=== PATIENT | female | born 1990 ===

== ENCOUNTER 2016-05-18 20:49 | Emergency (ER) | payer OTHER ==
[2016-05-18 20:49] VITALS: BMI 21.9
[2016-05-18] MEDS ORDERED: Sodium Chloride 0.9% 1,000 ML IV ONE ×2 (21:37→22:03)
[2016-05-18 21:48] LABS: BASO % 0.2 % (0.0-2.0); EOS # 0.1 K/uL (0.0-0.7); EOS % 0.6 % (0.0-4.0); HEMATOCRIT 38.6 % (34.0-47.0); LYMPH # 1.3 K/uL (1.0-4.3); LYMPH % 11.7 % (20.0-40.0); MEAN CELL VOLUME 82.6 fL (81.0-99.0); MEAN CORPUSCULAR HEMOGLOBIN 27.5 pg (27.0-31.0); MEAN CORPUSCULAR HGB CONC 33.3 g/dL (33.0-37.0); MEAN PLATELET VOLUME 7.7 fL (7.2-11.7); MONO # 0.9 K/uL (0.0-0.8); RED CELL DISTRIBUTION WIDTH 12.5 % (11.5-14.5); WHITE BLOOD COUNT 11.2 K/uL (4.8-10.8)
[2016-05-18] MEDS ORDERED: Sodium Chloride 0.9% 1,000 ML ONE (21:48)
[2016-05-18 21:50] LABS: RBC URINE 34 /hpf (0-3); URINE BACTERIA MANY (<OCC); URINE BILIRUBIN NEGATIVE (NEGATIVE); URINE BLOOD NEGATIVE (NEGATIVE); URINE COLOR Yellow (YELLOW); URINE GLUCOSE (UA) NORMAL (Normal); URINE KETONE 1+ mg/dL (NEGATIVE); URINE LEUKOCYTE ESTERASE 3+ Leu/uL (Negative); URINE PROTEIN NEGATIVE (NEGATIVE); WBC URINE 200 /hpf (0-5)
[2016-05-18 21:57] LABS: CHLORIDE 99 mmol/L (98-107); POTASSIUM 3.4 mmol/L (3.6-5.2); SODIUM 136 mmol/L (132-148)
[2016-05-18 21:59] LABS: BILIRUBIN,TOTAL 0.7 mg/dL (0.2-1.3); CARBON DIOXIDE 24 mmol/L (22-30); GFR AFRICAN-AMERICAN > 60
[2016-05-18 22:00] LABS: ALB/GLOB RATIO 1.3 (1.0-2.1); ALKALINE PHOSPHATASE 63 U/L (38-126); ALT/SGPT 44 U/L (9-52); AST/SGOT 23 U/L (14-36); BLOOD UREA NITROGEN 6 mg/dL (7-17); CALCIUM 8.4 mg/dl (8.6-10.4); GLUCOSE,RANDOM 89 mg/dL (65-105); TOTAL PROTEIN 7.4 g/dL (6.3-8.3)
--- NOTE | 2016-05-18 23:00 | C.PDOC ---
History Of Present Illness 25 year old female presents to the ED with complaints of diffuse bodyache and dry cough for four days. Patient describes a "few" episodes of bilious non- bloody vomiting, nausea, and fever. She denies any sick contacts, dysuria, hematuria, vaginal bleeding or discharge. Chief Complaint (Nursing): Abdominal Pain History Per: Patient History/Exam Limitations: no limitations Onset/Duration Of Symptoms: Days Current Symptoms Are (Timing): Still Present Associated Symptoms: Cough (dry cough ) Past Medical History Reviewed: Historical Data, Nursing Documentation, Vital Signs Vital Signs: Last Vital Signs Temp 98.9 F 05/18/16 23:40 Pulse 64 05/18/16 23:40 Resp 18 05/18/16 23:40 BP 102/65 05/18/16 23:40 Pulse Ox 98 05/18/16 23:40 - Medical History PMH: Anxiety Family History: States: Unknown Family Hx - Social History Hx Tobacco Use: No Hx Alcohol Use: No Hx Substance Use: No - Immunization History Hx Tetanus Toxoid Vaccination: Yes Hx Influenza Vaccination: No Hx Pneumococcal Vaccination: No Review Of Systems Constitutional: Positive for: Fever (subjective). Negative for: Chills Respiratory: Positive for: Cough (dry cough ) Gastrointestinal: Positive for: Nausea, Vomiting (bilious, non-bloody vomiting ) Genitourinary: Negative for: Dysuria, Hematuria, Vaginal Discharge, Vaginal Bleeding Physical Exam - Physical Exam Appears: Non-toxic, No Acute Distress Skin: Warm, Dry Neck: Normal ROM, Supple Respiratory: No Accessory Muscle Use, No Rales, No Rhonchi, No Stridor, No Wheezing Gastrointestinal/Abdominal: Soft, Tenderness (mild diffuse tenderness throughout ), No Distention, No Guarding, No Rebound Back: No CVA Tenderness Pelvic: No Vaginal Bleeding, No Vaginal Discharge Extremity: Normal ROM, No Tenderness Neurological/Psych: Oriented x3 ED Course And Treatment - Laboratory Results Result Diagrams: 05/18/16 21:46 05/18/16 21:46 O2 Sat by Pulse Oximetry: 94 Medical Decision Making Medical Decision Making: After hydration patient is feeling better. Patient discharged after positive test and given pre-susannah vitamins. Suggested to follow-up in OB clinic. Disposition - Disposition Referrals: [facility] [Outside] [facility] at [facility] [Outside] Disposition: HOME/ ROUTINE Disposition Time: 23:00 Condition: GOOD Additional Instructions: Thank you for letting us take care of you today. Your provider was Dr. Tello. You were treated for vomiting in . The emergency medical care you received today was directed at your acute symptoms. If you were prescribed any medication, please fill it and take as directed. It may take several days for your symptoms to resolve. Return to the Emergency Department if your symptoms worsen, do not improve, or if you have any other problems. Please contact your doctor or call one of the physicians/clinics you have been referred to that are listed on the Patient Visit Information form that is included in your discharge packet. Bring any paperwork you were given at discharge with you along with any medications you are taking to your follow up visit. Our treatment cannot replace ongoing medical care by a primary care provider (PCP) outside of the emergency department. [facility] you [facility] team to [facility] part of your care today. You had a urine culture: It will take several days for the results, if any change in treatment is needed we will contact you. Follow up in the clinic this week for OB follow up. Prescriptions: Vit No.126/Iron/FA [Classic Tablet] 1 each PO DAILY #30 tablet Instructions: Morning Sickness (ED), Acute Nausea and Vomiting (ED) - Clinical Impression Clinical Impression: Vomiting, - Scribe Statement The provider has reviewed the documentation as recorded by the Scribe Lynn Robbins All medical record entries made by the Arleneibe were at my direction and personally dictated by me. I have reviewed the chart and agree that the record accurately reflects my personal performance of the history, physical exam, medical decision making, and the department course for this patient. I have also personally directed, reviewed, and agree with the discharge instructions and disposition.
[2016-05-18 23:41] VITALS: BP 102/65; PULSE 64; RESP 18; TEMP 98.9
[2016-05-19 02:39] VITALS: O2SAT 94
== END 2016-05-18 23:41 | disposition home or self-care (01) ==
LOC: C.ER 20:49
DX: O21.0 Mild hyperemesis gravidarum (principal); Z3A.00 Weeks of gestation of pregnancy not specified
CPT/HCPCS: 80053; 81001; 83690; 84703; 85025; 87086; 87804; 96361; 96374; 96375; 99284; J2405; J7040

== ENCOUNTER 2016-06-03 09:46 | Emergency (ER) | payer OTHER ==
[2016-06-03 09:47] VITALS: BMI 21.9
[2016-06-03] MEDS ORDERED: Sodium Chloride 0.9% 1,000 ML IV ONE ×2 (10:37)
[2016-06-03] MEDS ORDERED: Sodium Chloride 0.9% 1,000 ML ONE ×2 (10:54→11:53)
[2016-06-03 11:14] LABS: BASO % 0.4 % (0.0-2.0); EOS % 0.5 % (0.0-4.0); LYMPH % 14.1 % (20.0-40.0); MEAN CELL VOLUME 82.9 fL (81.0-99.0); MEAN CORPUSCULAR HEMOGLOBIN 27.8 pg (27.0-31.0); MEAN CORPUSCULAR HGB CONC 33.6 g/dL (33.0-37.0); MEAN PLATELET VOLUME 8.2 fL (7.2-11.7); MONO # 0.5 K/uL (0.0-0.8); MONO % 7.7 % (0.0-10.0); RED CELL DISTRIBUTION WIDTH 12.6 % (11.5-14.5); WHITE BLOOD COUNT 6.9 K/uL (4.8-10.8)
[2016-06-03 11:24] LABS: RBC URINE 7 /hpf (0-3); URINE BACTERIA RARE (<OCC); URINE BILIRUBIN NEGATIVE (NEGATIVE); URINE BLOOD NEGATIVE (NEGATIVE); URINE COLOR Amber (YELLOW); URINE GLUCOSE (UA) NORMAL (Normal); URINE KETONE 1+ mg/dL (NEGATIVE); URINE LEUKOCYTE ESTERASE 2+ Leu/uL (Negative); URINE PROTEIN 1+ mg/dL (NEGATIVE); URINE UROBILINOGEN NORMAL mg/dL (0.2-1.0); WBC URINE 55 /hpf (0-5)
[2016-06-03 11:27] LABS: CHLORIDE 100 mmol/L (98-107)
[2016-06-03 11:28] LABS: POTASSIUM 3.2 mmol/L (3.6-5.2); SODIUM 135 mmol/L (132-148)
[2016-06-03 11:30] LABS: ALB/GLOB RATIO 1.2 (1.0-2.1); ALKALINE PHOSPHATASE 55 U/L (38-126); ALT/SGPT 19 U/L (9-52); AST/SGOT 17 U/L (14-36); BILIRUBIN,TOTAL 0.5 mg/dL (0.2-1.3); BLOOD UREA NITROGEN 6 mg/dL (7-17); CARBON DIOXIDE 26 mmol/L (22-30); GFR AFRICAN-AMERICAN > 60; GLUCOSE,RANDOM 88 mg/dL (65-105)
[2016-06-03 11:31] LABS: CALCIUM 8.4 mg/dl (8.6-10.4)
[2016-06-03 12:41] VITALS: BP 109/66; PULSE 61; RESP 20; TEMP 98.3; O2SAT 100
--- NOTE | 2016-06-03 13:47 | C.PDOC ---
History Of Present Illness 25 year old female with , presents to the ED with increased vomiting for 2 days. Patient also reports mild nausea, decreased PO intake but tolerate liquids. Patient denies fever, chills, cough, vaginal bleeding or discharge, hematuria, dysuria, blood in stool, or any other complaints. Chief Complaint (Nursing): GI Problem History Per: Patient History/Exam Limitations: no limitations Past Medical History Reviewed: Historical Data, Nursing Documentation, Vital Signs Vital Signs: Last Vital Signs Temp 98.3 F 06/03/16 12:40 Pulse 61 06/03/16 12:40 Resp 20 06/03/16 12:40 BP 109/66 06/03/16 12:40 Pulse Ox 100 06/03/16 13:51 - Medical History PMH: Anxiety Family History: States: Unknown Family Hx - Social History Hx Tobacco Use: No Hx Alcohol Use: No Hx Substance Use: No - Immunization History Hx Tetanus Toxoid Vaccination: Yes Hx Influenza Vaccination: No Hx Pneumococcal Vaccination: No Review Of Systems Except As Marked, All Systems Reviewed And Found Negative. Constitutional: Negative for: Fever Gastrointestinal: Positive for: Nausea, Vomiting Genitourinary: Negative for: Dysuria, Hematuria, Vaginal Discharge, Vaginal Bleeding Physical Exam - Physical Exam Appears: Non-toxic, No Acute Distress Skin: Warm, Dry Head: Atraumatic, Normacephalic Eye(s): bilateral: Normal Inspection Oral Mucosa: Moist Cardiovascular: Rhythm Regular, No Murmur Respiratory: Normal Breath Sounds, No Rales, No Rhonchi, No Wheezing Gastrointestinal/Abdominal: Soft, Tenderness (minimal difuse abdominal tenderness) Neurological/Psych: Oriented x3, Normal Speech, Normal Cognition ED Course And Treatment - Laboratory Results Result Diagrams: 06/03/16 11:11 06/03/16 11:11 O2 Sat by Pulse Oximetry: 100 (room air) Pulse Ox Interpretation: Normal Medical Decision Making Medical Decision Making: Plans: -IV fluids -Zofran -Urine labs -Reassess and disposition Disposition - Disposition Referrals: [facility] [Outside] [facility] at [facility] [Outside] [facility] [Outside] Disposition: HOME/ ROUTINE Disposition Time: 12:30 Condition: IMPROVED Additional Instructions: Thank you for letting us take care of you today. Your provider was Dr. Tello. You were treated for vomiting in . The emergency medical care you received today was directed at your acute symptoms. If you were prescribed any medication, please fill it and take as directed. It may take several days for your symptoms to resolve. Return to the Emergency Department if your symptoms worsen, do not improve, or if you have any other problems. Please contact your doctor or call one of the physicians/clinics you have been referred to that are listed on the Patient Visit Information form that is included in your discharge packet. Bring any paperwork you were given at discharge with you along with any medications you are taking to your follow up visit. Our treatment cannot replace ongoing medical care by a primary care provider (PCP) outside of the emergency department. Thank you for allowing the [facility] team to be part of your care today. Follow up with the [facility] in the next week for re-evaluation. Take your vitamins daily. Instructions: Acute Nausea and Vomiting (ED) - Clinical Impression Clinical Impression: Vomiting during - Scribe Statement The provider has reviewed the documentation as recorded by the Scribe Jackson morris All medical record entries made by the Arleneiblala were at my direction and personally dictated by me. I have reviewed the chart and agree that the record accurately reflects my personal performance of the history, physical exam, medical decision making, and the department course for this patient. I have also personally directed, reviewed, and agree with the discharge instructions and disposition.
== END 2016-06-03 12:46 | disposition home or self-care (01) ==
LOC: C.ER 09:46
DX: O21.9 Vomiting of pregnancy, unspecified (principal)
CPT/HCPCS: 80053; 81001; 83690; 85025; 87086; 96361; 96374; 99283; J2405; J7040

== ENCOUNTER 2016-08-14 08:01 | Emergency (ER) | payer OTHER ==
[2016-08-14 08:01] VITALS: BMI 21.9
[2016-08-14 08:19] VITALS: RESP 20; TEMP 98.4; O2SAT 98
[2016-08-14] MEDS ORDERED: Silver Sulfadiazine 1% Cream (20 gm) TOP STA (08:41)
[2016-08-14] MEDS ORDERED: Silver Sulfadiazine 1% Cream (20 gm) ONE ×2 (09:11→09:21)
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
[2016-08-14 09:34] VITALS: BP 121/75; PULSE 83
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
== END 2016-08-14 09:34 | disposition home or self-care (01) ==
LOC: C.ER 08:01
DX: L55.0 Sunburn of first degree (principal)